=== PATIENT | male | born 1955 | race Caucasian/White ===

== ENCOUNTER 2020-08-03 08:27 | Day surgery (SDC) | payer MEDICARE, BC ==
[2020-08-01 09:23] LABS: BASOPHILS % (AUTO) 0.6 % (0.0-2.0); EOSINOPHILS % (AUTO) 3.1 % (1.0-6.0); HEMATOCRIT 42.4 % (41-53); LYMPHOCYTES # (AUTO) 1.8 K/uL (1.0-4.8); LYMPHOCYTES % (AUTO) 26.9 % (22.0-44.0); MEAN CORPUSCULAR HEMOGLOBIN 30.7 pg (26.0-34.0); MEAN CORPUSCULAR HGB CONC 33.1 G/dL (31.0-37.0); MEAN CORPUSCULAR VOLUME 93 fL (80-100); MONOCYTES # (AUTO) 0.8 K/uL (0.1-1.0); MONOCYTES % (AUTO) 11.6 % (2.0-9.0); NEUTROPHILS # (AUTO) 3.8 K/uL (1.8-7.7); NEUTROPHILS % (AUTO) 57.8 % (40.0-70.0); PLATELET COUNT (AUTO) 164 K/uL (150-450); RED BLOOD CELL COUNT(AUTO) 4.57 MIL/uL (4.50-5.90); RED CELL DISTRIBUTION WIDTH 13.8 % (11.5-14.5)
[2020-08-01 09:29] LABS: COVID AG,FIA SOURCE NASOPHARYNGEAL
[2020-08-01 09:33] LABS: ANION GAP 5 mmol/L (8-16); CALCIUM, TOTAL 8.5 mg/dL (8.8-10.5); CARBON DIOXIDE 29 mmol/L (22-29); CHLORIDE 108 mmol/L (98-107); CREATININE 1.11 mg/dL (0.60-1.30); GLOMERULAR FILTR. RATE CALC > 60 mL/min (>60); GLUCOSE,RANDOM 107 mg/dL (70-110); POTASSIUM 4.2 mmol/L (3.5-5.1); SODIUM SERUM 142 mmol/L (136-145); UREA NITROGEN, BLOOD 19 mg/dL (7-18)
[2020-08-01 09:38] LABS: PROTHROMBIN TIME 10.7 SEC (9.4-11.6)
[2020-08-01 09:39] LABS: ALANINE AMINOTRANSFERASE 26 U/L (12-78); ALBUMIN 3.8 g/dL (3.4-5.0); ALKALINE PHOSPHATASE 97 U/L (46-116); ASPARTATE AMINOTRANSFERASE 22 U/L (15-37); BILIRUBIN,TOTAL 0.4 mg/dL (0.1-1.0); TOTAL PROTEIN, SERUM 7.2 g/dL (6.4-8.2)
[~2020-08-03] VITALS: Ht 188 cm; Wt 113.6 kg
[~2020-08-03 08:27] MED LIST: METO50 PO; OLME40TA8 PO; SODIUM CHLORIDE 0.9% 1,000 ML IV ONE
[2020-08-03] MEDS ORDERED: SODIUM CHLORIDE 0.9% 1,000 ML ONE (08:43)
[2020-08-03] MEDS ORDERED: IOHEXOL 300 MG/ML 50 ML VIAL ONE (10:21)
[2020-08-03] MEDS ORDERED: LIDOCAINE/PF 1% 30 ML VIAL ONE (10:21)
[2020-08-03] MEDS ORDERED: BENZOCAINE 20% 50 MCG/SPRAY 57 GM ONE (10:21)
[2020-08-03] MEDS ORDERED: IOHEXOL 300 MG/ML 100 ML VIAL ONE (10:22)
[2020-08-03] MEDS ORDERED: IOHEXOL 300 MG/ML 150 ML VIAL ONE (10:22)
[2020-08-03] MEDS ORDERED: HEPARIN SODIUM 1000 UNITS/NS 1,000 ML ONE (10:22)
[2020-08-03] MEDS ORDERED: SODIUM BICARBONATE 50 MEQ/50 ML VIAL ONE (10:22)
[2020-08-03] MEDS ORDERED: FentaNYL CITRATE PF 100 MCG/2 ML VIAL ONE (10:23)
[2020-08-03] MEDS ORDERED: MIDAZOLAM HCL 2 MG/2 ML VIAL ONE ×4 (10:23→12:05)
[2020-08-03 10:39] VITALS: BP 137/81
[2020-08-03] MEDS ORDERED: VERAPAMIL HCL 2.5 MG/ML 2 ML VIAL ONE ×2 (10:39→12:32)
[2020-08-03] MEDS ORDERED: NITROGLYCERIN 50 MG/D5% WATER 0 ML ONE (10:40)
[2020-08-03] MEDS ORDERED: MIDAZOLAM HCL 2 MG/2 ML VIAL IVP ONE ×3 (11:30→12:15)
[2020-08-03] MEDS ORDERED: FentaNYL CITRATE PF 100 MCG/2 ML VIAL IVP ONE ×3 (11:30→12:15)
[2020-08-03] MEDS ORDERED: IOHEXOL 300 MG/ML 150 ML VIAL IARTER ONE (12:15)
[2020-08-03] MEDS ORDERED: HEPARIN SODIUM 1000 UNITS/NS 1,000 ML IARTER ONE (12:15)
[2020-08-03] MEDS ORDERED: LIDOCAINE 1% 30 ML/SOD BICARB 8.4% 4 ML SQ ONE (12:15)
[2020-08-03 12:41] VITALS: BP 143/73
== END 2020-08-03 16:00 | disposition home or self-care (01) ==
LOC: CATHLAB 08:27
PROVIDERS: ATTEND Internal Medicine Cardiovascular Disease
DX: R94.39 Abnormal result of other cardiovascular function study (principal); I10 Essential (primary) hypertension; I34.0 Nonrheumatic mitral (valve) insufficiency; I48.0 Paroxysmal atrial fibrillation; Z98.890 Other specified postprocedural states; Z82.49 Family history of ischemic heart disease and other diseases of the circulatory system; Z79.899 Other long term (current) drug therapy
CPT/HCPCS: 36415; 80053; 85025; 85610; 85730; 87426; 93005; 93312; 93325; 93460; 99152; 99153; C1760; C9803; J1644; J2250; J3010; J3490 ×3; J7030; Q9967 ×2